=== PATIENT | male | born 1970 | race Caucasian/White ===

== ENCOUNTER → 2019-02-05 | Outpatient (CLI) | payer OTHER ==
--- NOTE | 2019-02-05 14:51 | 2DMMODE ---
[place] [address] 2 D/M-MODE ECHOCARDIOGRAM Name: LAZARO CHRISTIANSEN Room: [facility]#: [id number] Admission: 02/05/19 Attend Phys: Julia MOSER Discharge: Date of : 74 Date of Service: 02/05/19 1451 Report #: [id number] THIS REPORT FOR: //name// APPROVED REPORT Study performed: 02/05/2019 13:24:42 EXAM: Comprehensive 2D, Doppler, and color-flow Echocardiogram BSA: 2.30 HR: 97 bpm BP: 127/82 mmHg Other Information Study Quality: Good Indications Atrial Fibrillation 2D Dimensions IVSd: 11.24 (7-11mm) LVOT Diam: 20.43 (18-24mm) LVDd: 43.88 mm PWd: 10.65 (7-11mm) Ascending Ao: 30.55 (22-36mm) LVDs: 28.12 (25-40mm) Aortic Root: 27.69 mm Volumes Left Atrial Volume (Systole) LA ESV Index: 15.00 mL/m2 Aortic Valve AoV Peak Anjel.: 1.53 m/s AO Peak Gr.: 9.41 mmHg LVOT Max P.61 mmHg AO Mean Gr.: 5.13 mmHg LVOT Mean P.36 mmHg LVOT Max V: 1.07 m/s AO V2 VTI: 24.79 cm LVOT Mean V: 0.70 m/s DG (VTI): 2.86 cm2 LVOT V1 VTI: 21.64 cm Mitral Valve E/A Ratio: 1.54 MV Decel. Time: 157.47 ms MV E Max Anjel.: 0.92 m/s MV PHT: 45.67 ms MVA (PHT): 4.82 cm2 [place] [address] 2 D/M-MODE ECHOCARDIOGRAM Name: LAZARO CHRISTIANSEN Room: [facility]#: [id number] Admission: 02/05/19 Attend Phys: Julia MOSER Discharge: Date of : 74 Date of Service: 02/05/19 1451 Report #: [id number] TDI E/Lateral E': 6.13 E/Medial E': 6.57 Medial E' Anjel.: 0.14 m/s Lateral E' Anjel.: 0.15 m/s Pulmonary Valve PV Peak Anjel.: 0.98 m/s PV Peak Gr.: 3.87 mmHg Tricuspid Valve RAP Estimate: 5.00 mmHg TR Peak Gr.: 20.12 mmHg RVSP: 25.12 mmHg PA Pressure: 25.12 mmHg Left Ventricle The left ventricle is normal size. There is normal LV segmental wall motion. There is normal left ventricular wall thickness. Left ventricular systolic function is normal. The left ventricular ejection fraction is within the normal range. LVEF is 55-60%. This study is not technically sufficient to allow evaluation of the LV diastolic function due to atrial fibrillation. Right Ventricle The right ventricle is normal size. The right ventricular systolic function is normal. Atria The left atrium size is normal. The right atrium size is normal. Aortic Valve The aortic valve is normal in structure. No aortic regurgitation is present. There is no aortic valvular stenosis. Mitral Valve The mitral valve is normal in structure. Mild mitral regurgitation. No evidence of mitral valve stenosis. Tricuspid Valve The tricuspid valve is normal in structure. Mild tricuspid regurgitation. estimated pa pressure 35 mm Hg Pulmonic Valve Pulmonic valve is not well visualized. There is no pulmonic valvular regurgitation[place] [address] 2 D/M-MODE ECHOCARDIOGRAM Name: LAZARO CHRISTIANSEN Room: [facility]#: [id number] Admission: 02/05/19 Attend Phys: Julia MOSER Discharge: Date of : 74 Date of Service: 02/05/19 1451 Report #: [id number] The aortic root is normal in size. IVC is normal in size and collapses >50% with inspiration. Pericardium There is no pericardial effusion. <Conclusion> LVEF is 55-60%. Mild mitral regurgitation. <ELECTRONICALLY SIGNED> By: Mynor Cruz MD, FACC 02/05/19 145 50 50 Mynor Cruz MD, FACC /INF
== END ==
LOC: M.CRD 12:25
DX: I08.1 Rheumatic disorders of both mitral and tricuspid valves (principal); R94.31 Abnormal electrocardiogram [ECG] [EKG]; I48.92 Unspecified atrial flutter; I48.91 Unspecified atrial fibrillation